=== PATIENT | male | born 1965 | race Caucasian/White ===

== ENCOUNTER → 2016-08-31 | Outpatient (CLI) | payer MEDICAID, MEDICARE ==
[2016-08-31 11:44] LABS: ALBUMIN/GLOBULIN RATIO 1.48 (1.00-1.93); ALKALINE PHOSPHATASE 64 U/L (45-117); ALT/SGPT 19 U/L (12-78); ANION GAP 9 MEQ/L (8-16); AST/SGOT 9 U/L (15-37); BILIRUBIN,TOTAL 0.3 MG/DL (0.2-1.0); BLOOD UREA NITROGEN 8 MG/DL (7-18); CALCIUM LEVEL 10.3 MG/DL (8.5-10.1); CARBON DIOXIDE LEVEL 32 MEQ/L (21-32); CHLORIDE LEVEL 102 MEQ/L (98-107); CHOLESTEROL LEVEL 114 MG/DL (<200); CREATININE FOR GFR 0.78 MG/DL (0.70-1.30); GLOMERULAR FILTRATION RATE > 60.0 (>56); GLUCOSE, FASTING 64 MG/DL (70-105); POTASSIUM SERUM 4.9 MEQ/L (3.5-5.1); SODIUM LEVEL 143 MEQ/L (136-145); TOTAL PROTEIN 6.7 GM/DL (6.4-8.2); TRIGLYCERIDES LEVEL 64 MG/DL (<150)
== END ==
LOC: M LAB 10:36
PROVIDERS: ATTEND Emergency Medicine
DX: E11.9 Type 2 diabetes mellitus without complications (principal)

== ENCOUNTER → 2016-09-07 | Outpatient (REF) | payer MEDICARE ==
[2016-09-07 13:38] LABS: BASO % 1.1 % (0.0-1.0); EOS # 0.2 K/mm3 (0.0-0.50); EOS % 5.4 % (0.0-3.0); LARGE UNSTAINED CELL # 0.1 K/mm3 (0.0-0.4); LARGE UNSTAINED CELL % 1.5 % (0.0-4.0); LYMPH # 1.2 K/mm3 (1.5-4.5); LYMPH % 24.8 % (24.0-44.0); MEAN CORPUSCULAR HGB CONC 33.7 g/dl (32.0-36.5); MEAN CORPUSCULAR VOLUME 100.9 fl (80.0-96.0); MONO # 0.3 K/mm3 (0.0-0.8); MONO % 7.2 % (0.0-5.0); NEUTROPHILS # 2.8 K/mm3 (1.8-7.7); PLATELET COUNT, AUTOMATED 222 k/mm3 (150-450); RED CELL DISTRIBUTION WIDTH 12.7 % (11.5-14.5); WHITE BLOOD COUNT 4.7 K/mm3 (4.0-10.0)
[2016-09-11 00:07] LABS: PHENOBARBITAL (PRIMIDONE) 5 ug/mL (15-40)
== END ==
LOC: M LABNEURO 12:54
PROVIDERS: ATTEND Physician Assistant Medical
DX: R25.1 Tremor, unspecified (principal); G40.909 Epilepsy, unspecified, not intractable, without status epilepticus

== ENCOUNTER → 2017-03-01 | Outpatient (REF) | payer MEDICARE, MEDICAID ==
[2017-03-01 13:50] LABS: ALBUMIN 3.8 GM/DL (3.2-5.2); ALBUMIN/GLOBULIN RATIO 1.41 (1.00-1.93); ALKALINE PHOSPHATASE 66 U/L (45-117); ALT/SGPT 18 U/L (12-78); ANION GAP 9 MEQ/L (8-16); AST/SGOT 5 U/L (15-37); BILIRUBIN,TOTAL 0.5 MG/DL (0.2-1.0); BLOOD UREA NITROGEN 9 MG/DL (7-18); CALCIUM LEVEL 9.8 MG/DL (8.5-10.1); CARBON DIOXIDE LEVEL 29 MEQ/L (21-32); CHLORIDE LEVEL 98 MEQ/L (98-107); CHOLESTEROL LEVEL 118 MG/DL (<200); CREATININE FOR GFR 0.76 MG/DL (0.70-1.30); GLOMERULAR FILTRATION RATE > 60.0 (>56); GLUCOSE, FASTING 104 MG/DL (70-105); POTASSIUM SERUM 4.5 MEQ/L (3.5-5.1); SODIUM LEVEL 136 MEQ/L (136-145); TOTAL PROTEIN 6.5 GM/DL (6.4-8.2); TRIGLYCERIDES LEVEL 97 MG/DL (<150)
== END ==
LOC: M LABNEURO 12:23
PROVIDERS: ATTEND Emergency Medicine
DX: E11.9 Type 2 diabetes mellitus without complications (principal); I10 Essential (primary) hypertension; E55.9 Vitamin D deficiency, unspecified

== ENCOUNTER → 2017-03-19 | Outpatient (REF) | payer MEDICARE ==
[2017-03-19 14:34] LABS: BASO # 0.1 K/mm3 (0.0-0.2); BASO % 1.4 % (0.0-1.0); EOS # 0.3 K/mm3 (0.0-0.50); EOS % 5.7 % (0.0-3.0); LARGE UNSTAINED CELL # 0.1 K/mm3 (0.0-0.4); LARGE UNSTAINED CELL % 1.2 % (0.0-4.0); LYMPH # 1.4 K/mm3 (1.5-4.5); LYMPH % 26.5 % (24.0-44.0); MEAN CORPUSCULAR HEMOGLOBIN 34.2 pg (27.0-33.0); MEAN CORPUSCULAR VOLUME 100.6 fl (80.0-96.0); MONO # 0.3 K/mm3 (0.0-0.8); MONO % 5.3 % (0.0-5.0); PLATELET COUNT, AUTOMATED 234 k/mm3 (150-450); RED CELL DISTRIBUTION WIDTH 12.9 % (11.5-14.5)
[2017-03-24 08:06] LABS: PHENOBARBITAL (PRIMIDONE) 5 ug/mL (15-40)
== END ==
LOC: M LABNEURO 09:44
PROVIDERS: ATTEND Physician Assistant Medical
DX: G40.909 Epilepsy, unspecified, not intractable, without status epilepticus (principal); Z79.899 Other long term (current) drug therapy

== ENCOUNTER → 2017-04-02 | Outpatient (REF) | payer MEDICARE ==
[2017-04-05 00:07] LABS: PHENOBARBITAL (PRIMIDONE) 6 ug/mL (15-40)
== END ==
LOC: M LABNEURO 09:35
PROVIDERS: ATTEND Physician Assistant Medical
DX: G40.909 Epilepsy, unspecified, not intractable, without status epilepticus (principal)

== ENCOUNTER → 2017-04-19 | Outpatient (REF) | payer MEDICARE | LOC: M LABDRAW1 11:32 | PROVIDERS: ATTEND Physician Assistant Medical | DX: G40.909 Epilepsy, unspecified, not intractable, without status epilepticus (principal) ==

== ENCOUNTER → 2017-08-23 | Outpatient (REF) | payer MEDICARE ==
[2017-08-23 13:32] LABS: ALBUMIN 3.9 GM/DL (3.2-5.2); ALBUMIN/GLOBULIN RATIO 1.22 (1.00-1.93); ALKALINE PHOSPHATASE 73 U/L (45-117); ALT/SGPT 17 U/L (12-78); ANION GAP 9 MEQ/L (8-16); AST/SGOT 10 U/L (7-37); BILIRUBIN,TOTAL 0.4 MG/DL (0.2-1.0); BLOOD UREA NITROGEN 9 MG/DL (7-18); CALCIUM LEVEL 10.3 MG/DL (8.5-10.1); CARBON DIOXIDE LEVEL 32 MEQ/L (21-32); CHLORIDE LEVEL 96 MEQ/L (98-107); CHOLESTEROL LEVEL 125 MG/DL (<200); CHOLESTEROL RISK RATIO 2.717 (<5); CREATININE FOR GFR 0.81 MG/DL (0.70-1.30); GLOMERULAR FILTRATION RATE > 60.0 (>56); GLUCOSE, FASTING 99 MG/DL (70-105); HDL CHOLESTEROL 46 MG/DL (>40); LDL CHOLESTEROL 54.2 MG/DL (<100); NON-HDL-C 79 MG/DL; POTASSIUM SERUM 4.6 MEQ/L (3.5-5.1); SODIUM LEVEL 137 MEQ/L (136-145); TOTAL PROTEIN 7.1 GM/DL (6.4-8.2); TRIGLYCERIDES LEVEL 124 MG/DL (<150)
[2017-08-23 14:53] LABS: TOTAL 25(OH) VITAMIN D 46.3 NG/ML (30.0-100.0)
[2017-08-23 15:45] LABS: ESTIMATED AVERAGE GLUCOSE 143 MG/DL (60-110); HEMOGLOBIN A1c 6.6 %
== END ==
LOC: M LABNEURO 10:55
DX: E11.9 Type 2 diabetes mellitus without complications (principal); I10 Essential (primary) hypertension; E78.2 Mixed hyperlipidemia; E55.9 Vitamin D deficiency, unspecified
CPT/HCPCS: 80053

== ENCOUNTER → 2017-10-14 | Outpatient (REF) | payer MEDICARE, MEDICAID ==
[2017-10-14 14:29] LABS: VALPROIC ACID (DEPAKOTE) 51.7 UG/ML (50.0-100.0)
[2017-10-16 10:20] LABS: PHENOBARBITAL (PRIMIDONE) 6 ug/mL (15-40)
== END ==
LOC: M LABNEURO 09:57
DX: R56.9 Unspecified convulsions (principal)
CPT/HCPCS: 80188

== ENCOUNTER → 2018-02-20 | Outpatient (REF) | payer MEDICARE ==
[2018-02-20 13:25] LABS: ALBUMIN 3.7 GM/DL (3.2-5.2); ALBUMIN/GLOBULIN RATIO 1.16 (1.00-1.93); ALKALINE PHOSPHATASE 65 U/L (45-117); ALT/SGPT 23 U/L (12-78); ANION GAP 6 MEQ/L (8-16); AST/SGOT 5 U/L (7-37); BILIRUBIN,TOTAL 0.3 MG/DL (0.2-1.0); BLOOD UREA NITROGEN 9 MG/DL (7-18); CALCIUM LEVEL 9.7 MG/DL (8.5-10.1); CARBON DIOXIDE LEVEL 32 MEQ/L (21-32); CHLORIDE LEVEL 102 MEQ/L (98-107); CHOLESTEROL LEVEL 110 MG/DL (<200); CHOLESTEROL RISK RATIO 2.115 (<5); CREATININE FOR GFR 0.81 MG/DL (0.70-1.30); GLOMERULAR FILTRATION RATE > 60.0 (>56); GLUCOSE, FASTING 105 MG/DL (70-100); HDL CHOLESTEROL 52 MG/DL (>40); LDL CHOLESTEROL 45.4 MG/DL (<100); NON-HDL-C 58 MG/DL; POTASSIUM SERUM 4.7 MEQ/L (3.5-5.1); SODIUM LEVEL 140 MEQ/L (136-145); TOTAL PROTEIN 6.9 GM/DL (6.4-8.2); TRIGLYCERIDES LEVEL 63 MG/DL (<150)
[2018-02-20 14:15] LABS: ESTIMATED AVERAGE GLUCOSE 157 MG/DL (60-110); HEMOGLOBIN A1c 7.1 %
== END ==
LOC: M LABDRAW1 12:10
DX: E11.9 Type 2 diabetes mellitus without complications (principal); I10 Essential (primary) hypertension; E78.2 Mixed hyperlipidemia; E55.9 Vitamin D deficiency, unspecified; Z79.899 Other long term (current) drug therapy
CPT/HCPCS: 80053

== ENCOUNTER → 2018-02-26 | Outpatient (REF) | payer MEDICARE, MEDICAID ==
[2018-02-26 16:32] LABS: MALB URINE SIEMENS < 5.0 MG/L; MAU/CREAT RATIO 22.7 MCG/MG (0.0-30.0)
== END ==
LOC: M LABDRAW1 13:51
DX: E11.9 Type 2 diabetes mellitus without complications (principal)
CPT/HCPCS: 82043

== ENCOUNTER → 2018-05-06 | Outpatient (REF) | payer MEDICARE, MEDICAID ==
[2018-05-06 16:33] LABS: VALPROIC ACID (DEPAKOTE) 75.1 UG/ML (50.0-100.0)
[2018-05-10 00:07] LABS: LEVETIRACETAM (KEPPRA) 15.2 ug/mL (10.0-40.0); PHENOBARBITAL (PRIMIDONE) 4 ug/mL (15-40); PRIMIDONE, SERUM 4.3 ug/mL (5.0-12.0)
== END ==
LOC: M LABDRAW1 15:49
DX: G40.909 Epilepsy, unspecified, not intractable, without status epilepticus (principal)
CPT/HCPCS: 84443

== ENCOUNTER → 2018-08-25 | Outpatient (REF) | payer MEDICARE, MEDICAID | LOC: M LABNEURO 11:20 | PROVIDERS: ATTEND Physician Assistant | DX: E11.9 Type 2 diabetes mellitus without complications (principal) ==

== ENCOUNTER → 2018-09-07 | Outpatient (CLI) | payer MEDICARE, MEDICAID ==
[2018-09-07 17:57] LABS: BASO # 0.1 10^3/uL (0.0-0.2); BASO % 1.4 % (0.0-1.0); EOS # 0.4 10^3/uL (0.0-0.50); EOS % 4.1 % (0.0-3.0); HEMATOCRIT 45.2 % (42.0-52.0); HEMOGLOBIN 15.8 g/dl (13.5-17.5); LYMPH # 2.5 10^3/uL (1.5-4.5); LYMPH % 27.8 % (24.0-44.0); MEAN CORPUSCULAR HEMOGLOBIN 33.6 pg (27.0-33.0); MEAN CORPUSCULAR VOLUME 96.2 fl (80.0-96.0); MONO # 0.7 10^3/uL (0.0-0.8); MONO % 7.4 % (0.0-5.0); NEUTROPHILS # 5.4 10^3/uL (1.8-7.7); NEUTROPHILS % 59.1 % (36.0-66.0); PLATELET COUNT, AUTOMATED 260 10^3/uL (150-450); WHITE BLOOD COUNT 9.1 10^3/uL (4.0-10.0)
[2018-09-07 18:40] LABS: ALBUMIN 3.9 GM/DL (3.2-5.2); ALT/SGPT 20 U/L (12-78); BILIRUBIN,TOTAL 0.3 MG/DL (0.2-1.0); BLOOD UREA NITROGEN 8 MG/DL (7-18); CALCIUM LEVEL 8.8 MG/DL (8.5-10.1); CARBON DIOXIDE LEVEL 26 MEQ/L (21-32); CHLORIDE LEVEL 91 MEQ/L (98-107); CREATININE FOR GFR 0.67 MG/DL (0.70-1.30); GLOMERULAR FILTRATION RATE > 60.0 (>56); GLUCOSE, FASTING 69 MG/DL (70-100); LIPASE 140 U/L (73-393); SODIUM LEVEL 128 MEQ/L (136-145); TOTAL PROTEIN 6.7 GM/DL (6.4-8.2)
== END ==
LOC: M LABDRWAD 15:09
PROVIDERS: ATTEND Physician Assistant
DX: R10.31 Right lower quadrant pain (principal)

== ENCOUNTER → 2019-03-12 | Outpatient (REF) | payer MEDICARE, MEDICAID ==
[2019-03-12 13:07] LABS: BASO # 0.1 10^3/uL (0.0-0.2); BASO % 1.2 % (0.0-1.0); EOS # 0.2 10^3/uL (0.0-0.50); EOS % 4.8 % (0.0-3.0); HEMATOCRIT 46.4 % (42.0-52.0); HEMOGLOBIN 16.2 g/dl (13.5-17.5); LYMPH # 1.1 10^3/uL (1.5-4.5); MEAN CORPUSCULAR HEMOGLOBIN 33.8 pg (27.0-33.0); MEAN CORPUSCULAR HGB CONC 34.9 g/dl (32.0-36.5); MEAN CORPUSCULAR VOLUME 96.7 fl (80.0-96.0); MONO # 0.5 10^3/uL (0.0-0.8); MONO % 9.8 % (0.0-5.0); PLATELET COUNT, AUTOMATED 217 10^3/uL (150-450); WHITE BLOOD COUNT 4.8 10^3/uL (4.0-10.0)
[2019-03-12 13:21] LABS: ALBUMIN 3.7 GM/DL (3.2-5.2); ALT/SGPT 30 U/L (12-78); BILIRUBIN,TOTAL < 0.1 MG/DL (0.2-1.0); BLOOD UREA NITROGEN 11 MG/DL (7-18); CARBON DIOXIDE LEVEL 25 MEQ/L (21-32); CHLORIDE LEVEL 101 MEQ/L (98-107); CHOLESTEROL LEVEL 126 MG/DL (<200); CHOLESTEROL RISK RATIO 2.377 (<5); CREATININE FOR GFR 0.76 MG/DL (0.70-1.30); GLOMERULAR FILTRATION RATE > 60.0 (>56); GLUCOSE, FASTING 139 MG/DL (70-100); HDL CHOLESTEROL 53 MG/DL (>40); LDL CHOLESTEROL 53 MG/DL (<100); NON-HDL-C 73 MG/DL; POTASSIUM SERUM 4.7 MEQ/L (3.5-5.1); SODIUM LEVEL 134 MEQ/L (136-145); TOTAL PROTEIN 6.7 GM/DL (6.4-8.2); TRIGLYCERIDES LEVEL 99 MG/DL (<150)
[2019-03-12 13:25] LABS: HEMOGLOBIN A1c 7.7 %; TOTAL 25(OH) VITAMIN D 30.3 NG/ML (30.0-100.0)
[2019-03-12 13:40] LABS: CREATININE, URINE 51.8 MG/DL; MALB URINE SIEMENS 42.9 MG/L; MAU/CREAT RATIO 82.8 MCG/MG (0.0-30.0)
== END ==
LOC: M LABDRAW1 08:29
PROVIDERS: ATTEND Physician Assistant
DX: E11.69 Type 2 diabetes mellitus with other specified complication (principal); E55.9 Vitamin D deficiency, unspecified; G40.901 Epilepsy, unspecified, not intractable, with status epilepticus; Z51.81 Encounter for therapeutic drug level monitoring

== ENCOUNTER → 2019-03-12 | Outpatient (REF) | payer MEDICARE, MEDICAID ==
[2019-03-15 16:07] LABS: LEVETIRACETAM (KEPPRA) 7.6 ug/mL (10.0-40.0)
== END ==
LOC: M LABDRAW1 08:32
PROVIDERS: ATTEND Physician Assistant Medical
DX: G40.901 Epilepsy, unspecified, not intractable, with status epilepticus (principal); Z51.81 Encounter for therapeutic drug level monitoring

== ENCOUNTER → 2019-09-09 | Outpatient (REF) | payer MEDICARE, MEDICAID ==
[2019-09-09 14:32] LABS: HEMOGLOBIN A1c 6.6 %
[2019-09-09 14:41] LABS: ALBUMIN 3.9 GM/DL (3.2-5.2); ALT/SGPT 17 U/L (12-78); BILIRUBIN,TOTAL 0.3 MG/DL (0.2-1.0); BLOOD UREA NITROGEN 8 MG/DL (7-18); CALCIUM LEVEL 9.3 MG/DL (8.5-10.1); CARBON DIOXIDE LEVEL 29 MEQ/L (21-32); CHLORIDE LEVEL 102 MEQ/L (98-107); CREATININE FOR GFR 0.81 MG/DL (0.70-1.30); GLOMERULAR FILTRATION RATE > 60.0 (>56); GLUCOSE, FASTING 112 MG/DL (70-100); POTASSIUM SERUM 4.5 MEQ/L (3.5-5.1); SODIUM LEVEL 137 MEQ/L (136-145); TOTAL PROTEIN 6.5 GM/DL (6.4-8.2)
[2019-09-09 15:09] LABS: CREATININE, URINE 40.7 MG/DL; MALB URINE SIEMENS 25.9 MG/L; MAU/CREAT RATIO 63.6 MCG/MG (0.0-30.0)
== END ==
LOC: M LABDRWAD 12:52
PROVIDERS: ATTEND Physician Assistant
DX: E11.69 Type 2 diabetes mellitus with other specified complication (principal)

== ENCOUNTER → 2019-09-26 | Outpatient (CLI) | payer MEDICARE, MEDICAID | LOC: M ADAMS 10:26 | PROVIDERS: ATTEND Physician Assistant Medical | DX: R25.1 Tremor, unspecified (principal); G40.89 Other seizures ==

== ENCOUNTER → 2020-04-07 | Outpatient (REF) | payer MEDICARE, MEDICAID ==
[2020-04-09 11:13] LABS: LEVETIRACETAM (KEPPRA) 8.2 ug/mL (10.0-40.0)
== END ==
LOC: M LABDRWAD 13:21
PROVIDERS: ATTEND Physician Assistant Medical
DX: G40.89 Other seizures (principal)

== ENCOUNTER → 2020-04-07 | Outpatient (REF) | payer MEDICARE, MEDICAID ==
[2020-04-07 14:05] LABS: BASO # 0.1 10^3/uL (0.0-0.2); BASO % 1.4 % (0.0-1.0); EOS # 0.2 10^3/uL (0.0-0.5); EOS % 4.9 % (0.0-3.0); LYMPH # 1.2 10^3/uL (1.5-5.0); LYMPH % 24.8 % (24.0-44.0); MEAN CORPUSCULAR HEMOGLOBIN 33.6 pg (27.0-33.0); MEAN CORPUSCULAR HGB CONC 34.8 g/dl (32.0-36.5); MEAN CORPUSCULAR VOLUME 96.6 fl (80.0-96.0); MONO # 0.4 10^3/uL (0.0-0.8); MONO % 8.4 % (0.0-5.0); NEUTROPHILS # 2.9 10^3/uL (1.5-8.5); NEUTROPHILS % 60.3 % (36.0-66.0); PLATELET COUNT, AUTOMATED 210 10^3/uL (150-450); RED BLOOD COUNT 4.76 10^6/uL (4.30-6.10); WHITE BLOOD COUNT 4.9 10^3/uL (4.0-10.0)
[2020-04-07 14:23] LABS: ALBUMIN 4.1 GM/DL (3.2-5.2); ALT/SGPT 21 U/L (12-78); BLOOD UREA NITROGEN 10 MG/DL (7-18); CALCIUM LEVEL 9.8 MG/DL (8.5-10.1); CARBON DIOXIDE LEVEL 28 MEQ/L (21-32); CHLORIDE LEVEL 95 MEQ/L (98-107); CHOLESTEROL LEVEL 145 MG/DL (<200); CHOLESTEROL RISK RATIO 2.589 (<5); CREATININE FOR GFR 0.85 MG/DL (0.70-1.30); GLOMERULAR FILTRATION RATE > 60.0 (>56); GLUCOSE, FASTING 101 MG/DL (70-100); HDL CHOLESTEROL 56 MG/DL (>40); LDL CHOLESTEROL 64 MG/DL (<100); NON-HDL-C 89 MG/DL; POTASSIUM SERUM 4.5 MEQ/L (3.5-5.1); SODIUM LEVEL 132 MEQ/L (136-145); TOTAL 25(OH) VITAMIN D 36.7 NG/ML (30.0-100.0); TOTAL PROTEIN 7.1 GM/DL (6.4-8.2); TRIGLYCERIDES LEVEL 123 MG/DL (<150)
[2020-04-07 14:53] LABS: BILIRUBIN,TOTAL 0.4 MG/DL (0.2-1.0)
[2020-04-07 15:03] LABS: MAU/CREAT RATIO 80.3 MCG/MG (0.0-30.0)
== END ==
LOC: M LABDRWAD 13:19
PROVIDERS: ATTEND Physician Assistant
DX: E11.69 Type 2 diabetes mellitus with other specified complication (principal); E78.2 Mixed hyperlipidemia; E55.9 Vitamin D deficiency, unspecified; J30.9 Allergic rhinitis, unspecified; Z79.899 Other long term (current) drug therapy

== ENCOUNTER 2021-10-03 15:06 | Inpatient (IN) | payer MEDICARE, MEDICAID ==
[~2021-10-03] VITALS: Ht 180.3 cm; Wt 75.0 kg
[2021-10-03] MEDS ORDERED: DIVA500T94 (15:31)
[2021-10-03] MEDS ORDERED: FARX1TAB3 (15:31)
[2021-10-03] MEDS ORDERED: METF10004 (15:31)
[2021-10-03] MEDS ORDERED: ASPI81TA26 PO (15:31)
[2021-10-03] MEDS ORDERED: PRAV40TA2 (15:31)
[2021-10-03] MEDS ORDERED: LOSA100T45 (15:31)
[2021-10-03] MEDS ORDERED: DOK1CAP4 (15:31)
[2021-10-03] MEDS ORDERED: ERGO500029 (15:31)
[2021-10-03] MEDS ORDERED: PRIM50TA6 (15:31)
[2021-10-03] MEDS ORDERED: CALC-356 (15:31)
[2021-10-03] MEDS ORDERED: LEVE10003 (15:31)
[2021-10-03] MEDS ORDERED: DOCU100C16 (15:31)
[2021-10-03] MEDS ORDERED: ONDANSETRON 4MG/2ML VIAL IV ONE (15:55)
[2021-10-03] MEDS ORDERED: NS 1,000 ML IV ONE (15:55)
[2021-10-03] MEDS ORDERED: MORPHINE 4 MG/ML 1ML VIAL/SYRINGE (J2270) IV ONE (15:55)
[2021-10-03] MEDS ORDERED: ISOVUE-370 76% 100ML VIAL As Ordered ONE (16:16)
[2021-10-03 17:07] LABS: RSV AMPLIFICATION NEGATIVE (NEGATIVE)
[2021-10-03] MEDS ORDERED: MORPHINE 4 MG/ML 1ML VIAL/SYRINGE (J2270) IV PRN ×2 (19:55)
[2021-10-03] MEDS ORDERED: ONDANSETRON 4MG/2ML VIAL IV PRN (19:55)
[2021-10-03] MEDS ORDERED: GLUCAGON INJ 1MG VIAL SC PRN (19:55)
[2021-10-03] MEDS: LR 1,000 ML IV SCH ×2 (19:55→23:02)
[2021-10-03] MEDS ORDERED: GLUCOSE 4GM CHEW TABLET PO PRN (19:55)
[2021-10-03] MEDS ORDERED: DEXTROSE 50% 50 ML SYRINGE IV PRN (19:55)
[2021-10-03 21:01] LABS: BASO % 0.1 % (0.0-1.0); HEMATOCRIT 47.8 % (42.0-52.0); LYMPH # 1.5 10^3/uL (1.5-5.0); LYMPH % 10.7 % (24.0-44.0); MEAN CORPUSCULAR HEMOGLOBIN 33.8 pg (27.0-33.0); MEAN CORPUSCULAR HGB CONC 34.3 g/dl (32.0-36.5); MEAN CORPUSCULAR VOLUME 98.6 fl (80.0-96.0); MONO % 12.3 % (2.0-8.0); NEUTROPHILS % 76.5 % (36.0-66.0); PLATELET COUNT, AUTOMATED 240 10^3/uL (150-450); RED BLOOD COUNT 4.85 10^6/uL (4.30-6.10); WHITE BLOOD COUNT 14.3 10^3/uL (4.0-10.0)
[2021-10-03] MEDS ORDERED: ERGO500029 PO (21:14)
[2021-10-03] MEDS ORDERED: CALC1TAB63 PO (21:14)
[2021-10-03] MEDS ORDERED: PRAV40TA2 PO (21:14)
[2021-10-03] MEDS ORDERED: ASPI-161 PO (21:14)
[2021-10-03] MEDS ORDERED: METF10004 PO (21:14)
[2021-10-03] MEDS ORDERED: PRIM50TA6 PO ×2 (21:14)
[2021-10-03] MEDS ORDERED: LOSA100T45 PO (21:14)
[2021-10-03] MEDS ORDERED: DIVA500T94 PO ×2 (21:14)
[2021-10-03] MEDS ORDERED: DOCU100C16 PO (21:14)
[2021-10-03] MEDS ORDERED: KEPP10002 PO (21:14)
[2021-10-03] MEDS ORDERED: FARX1TAB3 PO (21:14)
[2021-10-03] MEDS ORDERED: HOME MED LIST COMPLETE! XX SCH (21:15)
[2021-10-03 21:33] LABS: MONO # 1.8 10^3/uL (0.0-0.8)
[2021-10-03 21:35] LABS: HEMOGLOBIN 16.4 g/dl (13.5-17.5)
[2021-10-03 21:39] LABS: ALBUMIN 2.9 GM/DL (3.2-5.2); BILIRUBIN,TOTAL 0.4 MG/DL (0.2-1.0); CALCIUM LEVEL 8.9 MG/DL (8.5-10.1); CREATININE FOR GFR 1.36 MG/DL (0.70-1.30); GLOMERULAR FILTRATION RATE 57.7 (>56); POTASSIUM SERUM 3.4 MEQ/L (3.5-5.1); TOTAL PROTEIN 5.6 GM/DL (6.4-8.2)
[2021-10-03] MEDS ORDERED: levETIRAcetam INJection 1,000 MG in D5W 100 ML IV ONE (22:20)
[2021-10-03] MEDS: HumaLOG INSULIN (NovoLOG) PER UNIT SC SCH ×2 (22:45→23:03)
[2021-10-03] MEDS: levETIRAcetam 250MG TABLET (KEPPRA) PO SCH (22:55)
[2021-10-04] MEDS: LR 1,000 ML IV SCH ×2 (06:25→13:54)
[2021-10-04 06:39] LABS: HEMATOCRIT 46.8 % (42.0-52.0); HEMOGLOBIN 16.2 g/dl (13.5-17.5); MEAN CORPUSCULAR HEMOGLOBIN 34.2 pg (27.0-33.0); MEAN CORPUSCULAR HGB CONC 34.6 g/dl (32.0-36.5); MEAN CORPUSCULAR VOLUME 98.7 fl (80.0-96.0); PLATELET COUNT, AUTOMATED 233 10^3/uL (150-450); RED BLOOD COUNT 4.74 10^6/uL (4.30-6.10)
[2021-10-04 07:01] LABS: INR 1.2; PROTHROMBIN TIME 15.6 SECONDS (12.7-14.5)
[2021-10-04 07:02] LABS: PARTIAL THROMBOPLASTIN TIME 31.6 SECONDS (25.9-37.0)
[2021-10-04 07:04] LABS: BLOOD UREA NITROGEN 36 MG/DL (7-18); CALCIUM LEVEL 8.6 MG/DL (8.5-10.1); CARBON DIOXIDE LEVEL 28 MEQ/L (21-32); CHLORIDE LEVEL 97 MEQ/L (98-107); CREATININE FOR GFR 0.82 MG/DL (0.70-1.30); GLOMERULAR FILTRATION RATE > 60.0 (>56); GLUCOSE, FASTING 103 MG/DL (70-100); POTASSIUM SERUM 3.6 MEQ/L (3.5-5.1); SODIUM LEVEL 137 MEQ/L (136-145)
[2021-10-04] MEDS ORDERED: levETIRAcetam INJection 1,000 MG in D5W 100 ML IV SCH (10:00)
[2021-10-04] MEDS: HumaLOG INSULIN (NovoLOG) PER UNIT SC SCH ×3 (12:00→21:00)
[2021-10-04] MEDS: DOCUSATE SODIUM 100MG CAPSULE PO SCH ×2 (12:09→21:09)
[2021-10-04] MEDS: LOSARTAN 50MG TABLET PO SCH (12:09)
[2021-10-04] MEDS: PRAVASTATIN 20 MG TAB PO SCH (12:09)
[2021-10-04] MEDS: DIVALPROEX 500 MG TAB PO SCH ×2 (12:25→21:10)
[2021-10-04] MEDS: PRIMIDONE 50MG TAB PO SCH ×2 (14:09→21:10)
[2021-10-04 14:45] VITALS: BP 160/74
[2021-10-04] MEDS: levETIRAcetam 250MG TABLET (KEPPRA) PO SCH (21:10)
[2021-10-04 22:00] VITALS: BP_SYST 150; BP_SYST 173; BP_DIAS 68; BP_DIAS 85
[2021-10-05 06:00] VITALS: BP 131/78
[2021-10-05] MEDS: HumaLOG INSULIN (NovoLOG) PER UNIT SC SCH ×4 (07:30→20:34)
[2021-10-05 08:30] VITALS: BP 131/78
[2021-10-05] MEDS: levETIRAcetam 250MG TABLET (KEPPRA) PO SCH ×2 (09:56→21:17)
[2021-10-05] MEDS: DOCUSATE SODIUM 100MG CAPSULE PO SCH ×2 (09:57→21:18)
[2021-10-05] MEDS: PRIMIDONE 50MG TAB PO SCH ×2 (09:57→21:17)
[2021-10-05] MEDS: DIVALPROEX 500 MG TAB PO SCH ×2 (09:58→21:17)
[2021-10-05] MEDS: LOSARTAN 50MG TABLET PO SCH (10:00)
[2021-10-05] MEDS: PRAVASTATIN 20 MG TAB PO SCH (10:01)
[2021-10-05 14:00] VITALS: BP 156/87
[2021-10-05] MEDS: SENNA 8.6 MG TAB (SENOKOT) PO SCH (21:17)
[2021-10-05] MEDS: HEPARIN SOD (PORCINE) 5000UNITS/ML 1ML VIAL/SYRINGE SQ SCH (21:18)
[2021-10-05 22:00] VITALS: BP 159/82
[2021-10-06] MEDS: HEPARIN SOD (PORCINE) 5000UNITS/ML 1ML VIAL/SYRINGE SQ SCH ×3 (05:15→21:21)
[2021-10-06 06:57] VITALS: BP 155/79
[2021-10-06 07:12] LABS: HEMATOCRIT 42.4 % (42.0-52.0); HEMOGLOBIN 14.8 g/dl (13.5-17.5); MEAN CORPUSCULAR HEMOGLOBIN 33.9 pg (27.0-33.0); MEAN CORPUSCULAR HGB CONC 34.9 g/dl (32.0-36.5); PLATELET COUNT, AUTOMATED 175 10^3/uL (150-450); RED BLOOD COUNT 4.37 10^6/uL (4.30-6.10); WHITE BLOOD COUNT 6.4 10^3/uL (4.0-10.0)
[2021-10-06 07:39] LABS: BLOOD UREA NITROGEN 11 MG/DL (7-18); CARBON DIOXIDE LEVEL 31 MEQ/L (21-32); CHLORIDE LEVEL 98 MEQ/L (98-107); CREATININE FOR GFR 0.46 MG/DL (0.70-1.30); GLOMERULAR FILTRATION RATE > 60.0 (>56); GLUCOSE, FASTING 120 MG/DL (70-100); MAGNESIUM LEVEL 1.8 MG/DL (1.8-2.4); POTASSIUM SERUM 2.2 MEQ/L (3.5-5.1); SODIUM LEVEL 136 MEQ/L (136-145)
[2021-10-06] MEDS ORDERED: POTASSIUM CHLORIDE 10MEQ SR TABLET PO SCH (08:00)
[2021-10-06] MEDS: PRAVASTATIN 20 MG TAB PO SCH (08:15)
[2021-10-06] MEDS: HumaLOG INSULIN (NovoLOG) PER UNIT SC SCH ×4 (08:15→21:00)
[2021-10-06] MEDS: DOCUSATE SODIUM 100MG CAPSULE PO SCH ×2 (08:16→21:22)
[2021-10-06] MEDS: DIVALPROEX 500 MG TAB PO SCH ×2 (08:16→21:22)
[2021-10-06] MEDS: SENNA 8.6 MG TAB (SENOKOT) PO SCH ×2 (08:16→21:22)
[2021-10-06] MEDS: levETIRAcetam 250MG TABLET (KEPPRA) PO SCH ×2 (08:17→21:22)
[2021-10-06] MEDS: PRIMIDONE 50MG TAB PO SCH ×2 (08:17→21:22)
[2021-10-06] MEDS: LOSARTAN 50MG TABLET PO SCH (08:17)
[2021-10-06] MEDS: POTASSIUM CHLORIDE 10MEQ SR TABLET PO SCH ×2 (10:01→13:35)
[2021-10-06 14:00] VITALS: BP 177/88
[2021-10-06 20:00] VITALS: BP 153/89
[2021-10-07] MEDS: HEPARIN SOD (PORCINE) 5000UNITS/ML 1ML VIAL/SYRINGE SQ SCH ×3 (05:35→21:53)
[2021-10-07 05:43] VITALS: BP 164/88
[2021-10-07 06:19] LABS: HEMATOCRIT 41.8 % (42.0-52.0); HEMOGLOBIN 14.5 g/dl (13.5-17.5); MEAN CORPUSCULAR HEMOGLOBIN 33.8 pg (27.0-33.0); MEAN CORPUSCULAR HGB CONC 34.7 g/dl (32.0-36.5); MEAN CORPUSCULAR VOLUME 97.4 fl (80.0-96.0); PLATELET COUNT, AUTOMATED 169 10^3/uL (150-450); RED BLOOD COUNT 4.29 10^6/uL (4.30-6.10); WHITE BLOOD COUNT 5.8 10^3/uL (4.0-10.0)
[2021-10-07 06:55] LABS: BLOOD UREA NITROGEN 6 MG/DL (7-18); CALCIUM LEVEL 8.2 MG/DL (8.5-10.1); CARBON DIOXIDE LEVEL 32 MEQ/L (21-32); CHLORIDE LEVEL 100 MEQ/L (98-107); CREATININE FOR GFR 0.45 MG/DL (0.70-1.30); GLOMERULAR FILTRATION RATE > 60.0 (>56); GLUCOSE, FASTING 133 MG/DL (70-100); POTASSIUM SERUM 2.6 MEQ/L (3.5-5.1); SODIUM LEVEL 136 MEQ/L (136-145)
[2021-10-07] MEDS: levETIRAcetam 250MG TABLET (KEPPRA) PO SCH ×2 (08:48→21:54)
[2021-10-07] MEDS: SENNA 8.6 MG TAB (SENOKOT) PO SCH ×2 (08:48→21:54)
[2021-10-07] MEDS: LOSARTAN 50MG TABLET PO SCH (08:48)
[2021-10-07] MEDS: DOCUSATE SODIUM 100MG CAPSULE PO SCH ×2 (08:49→21:54)
[2021-10-07] MEDS: POTASSIUM CHLORIDE 10MEQ SR TABLET PO SCH ×3 (08:49→12:42)
[2021-10-07] MEDS: metFORMIN (GLUCOPHAGE) 1000 MG TABLET PO SCH ×2 (08:49→17:29)
[2021-10-07] MEDS: PRAVASTATIN 20 MG TAB PO SCH (08:50)
[2021-10-07] MEDS: PRIMIDONE 50MG TAB PO SCH ×2 (08:50→21:54)
[2021-10-07] MEDS: DIVALPROEX 500 MG TAB PO SCH ×2 (08:50→21:53)
[2021-10-07 11:26] LABS: APPEARANCE, URINE CLEAR (CLEAR); BACTERIA, URINE AUTO NEGATIVE (NEGATIVE); BILIRUBIN, URINE AUTO NEGATIVE (NEGATIVE); BLOOD, URINE BLOOD 1+ (NEGATIVE); COLOR, URINE STRAW (YELLOW); GLUCOSE, URINE (UA) AUTO 1+ mg/dL (NEGATIVE); KETONE, URINE AUTO 1+ mg/dL (NEGATIVE); LEUKOCYTE ESTERASE, URINE AUTO NEGATIVE (NEGATIVE); NITRITE, URINE AUTO NEGATIVE (NEGATIVE); PROTEIN, URINE AUTO NEGATIVE (NEGATIVE); RBC, URINE AUTO 0 /HPF (0-3); SPECIFIC GRAVITY URINE AUTO 1.003 (1.002-1.035); SQUAMOUS EPITHELIAL CELL UR AU 0 /HPF (0-6); UROBILINOGEN, URINE AUTO 0.2 mg/dL (0.0-2.0); WBC, URINE AUTO 0 /HPF (0-3)
[2021-10-07 20:21] VITALS: BP 165/85
[2021-10-08] MEDS: HEPARIN SOD (PORCINE) 5000UNITS/ML 1ML VIAL/SYRINGE SQ SCH (05:09)
[2021-10-08 05:36] VITALS: BP 162/84
[2021-10-08 07:52] LABS: HEMATOCRIT 40.1 % (42.0-52.0); HEMOGLOBIN 13.8 g/dl (13.5-17.5); MEAN CORPUSCULAR HEMOGLOBIN 33.7 pg (27.0-33.0); MEAN CORPUSCULAR HGB CONC 34.4 g/dl (32.0-36.5); MEAN CORPUSCULAR VOLUME 97.8 fl (80.0-96.0); PLATELET COUNT, AUTOMATED 168 10^3/uL (150-450); WHITE BLOOD COUNT 5.2 10^3/uL (4.0-10.0)
[2021-10-08 08:10] LABS: BLOOD UREA NITROGEN 6 MG/DL (7-18); CALCIUM LEVEL 8.1 MG/DL (8.5-10.1); CARBON DIOXIDE LEVEL 29 MEQ/L (21-32); CHLORIDE LEVEL 100 MEQ/L (98-107); CREATININE FOR GFR 0.45 MG/DL (0.70-1.30); GLOMERULAR FILTRATION RATE > 60.0 (>56); GLUCOSE, FASTING 140 MG/DL (70-100); MAGNESIUM LEVEL 1.7 MG/DL (1.8-2.4); POTASSIUM SERUM 3.1 MEQ/L (3.5-5.1); SODIUM LEVEL 136 MEQ/L (136-145)
[2021-10-08] MEDS: metFORMIN (GLUCOPHAGE) 1000 MG TABLET PO SCH (08:13)
[2021-10-08] MEDS: PRAVASTATIN 20 MG TAB PO SCH (08:14)
[2021-10-08 08:15] VITALS: BP 162/84
[2021-10-08] MEDS: LOSARTAN 50MG TABLET PO SCH (08:15)
[2021-10-08] MEDS: DIVALPROEX 500 MG TAB PO SCH (08:15)
[2021-10-08] MEDS: DOCUSATE SODIUM 100MG CAPSULE PO SCH (08:15)
[2021-10-08] MEDS: SENNA 8.6 MG TAB (SENOKOT) PO SCH (08:15)
[2021-10-08] MEDS: PRIMIDONE 50MG TAB PO SCH (08:15)
[2021-10-08] MEDS ORDERED: POTASSIUM CHLORIDE 10MEQ SR TABLET PO ONE (09:00)
[2021-10-08] MEDS ORDERED: MAG SULF 1GM/100ML (MAG RUN) 1 GM in IV 1 EA IV ONE (09:00)
[2021-10-08] MEDS ORDERED: POTA-136 PO (10:08)
== END 2021-10-08 13:48 | disposition home or self-care (01) | DRG 389 ==
LOC: M ED 15:06 → M ED INP 19:55 → ENRESERV 10-04 13:57 → M MSPAV 10-04 14:46
PROVIDERS: ADMIT Family Medicine; ATTEND Family Medicine
DX: K56.2 Volvulus (principal); N17.9 Acute kidney failure, unspecified; E87.2 Acidosis; E11.9 Type 2 diabetes mellitus without complications; G40.909 Epilepsy, unspecified, not intractable, without status epilepticus; I10 Essential (primary) hypertension; E78.5 Hyperlipidemia, unspecified; E87.6 Hypokalemia; Z79.82 Long term (current) use of aspirin; Z79.899 Other long term (current) drug therapy

== ENCOUNTER → 2021-10-03 | Outpatient (CLI) | payer MEDICARE, MEDICAID ==
[~2021-10-03] MED LIST: ASPI-161 PO; ASPI81TA26 PO; CALC-356; CALC1TAB63 PO; DIVA500T94; DIVA500T94 PO; DOCU100C16; DOCU100C16 PO; DOK1CAP4; ERGO500029; ERGO500029 PO; FARX1TAB3; FARX1TAB3 PO; KEPP10002 PO; LEVE10003; LOSA100T45; LOSA100T45 PO; METF10004; METF10004 PO; PRAV40TA2; PRAV40TA2 PO; PRIM50TA6; PRIM50TA6 PO
[2021-10-03 13:10] LABS: BASO % 0.2 % (0.0-1.0); HEMATOCRIT 52.6 % (42.0-52.0); HEMOGLOBIN 18.5 g/dl (13.5-17.5); LYMPH # 0.9 10^3/uL (1.5-5.0); MEAN CORPUSCULAR HEMOGLOBIN 33.8 pg (27.0-33.0); MEAN CORPUSCULAR HGB CONC 35.2 g/dl (32.0-36.5); MEAN CORPUSCULAR VOLUME 96.2 fl (80.0-96.0); MONO # 1.2 10^3/uL (0.0-0.8); MONO % 7.8 % (2.0-8.0); NEUTROPHILS # 12.6 10^3/uL (1.5-8.5); NEUTROPHILS % 85.5 % (36.0-66.0); PLATELET COUNT, AUTOMATED 312 10^3/uL (150-450); RED BLOOD COUNT 5.47 10^6/uL (4.30-6.10); WHITE BLOOD COUNT 14.8 10^3/uL (4.0-10.0)
[2021-10-03 13:31] LABS: ALBUMIN 3.8 GM/DL (3.2-5.2); BILIRUBIN,TOTAL 0.5 MG/DL (0.2-1.0); CALCIUM LEVEL 10.1 MG/DL (8.5-10.1); CREATININE FOR GFR 1.63 MG/DL (0.70-1.30); GLOMERULAR FILTRATION RATE 46.8 (>56); POTASSIUM SERUM 3.8 MEQ/L (3.5-5.1); TOTAL PROTEIN 6.8 GM/DL (6.4-8.2)
== END ==
LOC: M PLALAB 11:38
PROVIDERS: ATTEND Nurse Practitioner Family
DX: R10.84 Generalized abdominal pain (principal)

== ENCOUNTER → 2021-10-11 | Outpatient (REF) | payer MEDICARE, MEDICAID ==
[~2021-10-11] MED LIST changes: +POTA-136 PO
[2021-10-11 17:44] LABS: BLOOD UREA NITROGEN 12 MG/DL (7-18); CALCIUM LEVEL 8.5 MG/DL (8.5-10.1); CARBON DIOXIDE LEVEL 35 MEQ/L (21-32); CHLORIDE LEVEL 97 MEQ/L (98-107); CREATININE FOR GFR 0.68 MG/DL (0.70-1.30); GLOMERULAR FILTRATION RATE > 60.0 (>56); GLUCOSE, FASTING 147 MG/DL (70-100); POTASSIUM SERUM 3.5 MEQ/L (3.5-5.1); SODIUM LEVEL 137 MEQ/L (136-145)
== END ==
LOC: M LABDRWAD 16:17
PROVIDERS: ATTEND Family Medicine
DX: E87.6 Hypokalemia (principal)

== ENCOUNTER → 2022-06-18 | Outpatient (CLI) | payer MEDICARE, MEDICAID ==
[2022-06-18 16:27] LABS: BASO # 0.1 10^3/uL (0.0-0.2); BASO % 1.2 % (0.0-1.0); EOS # 0.3 10^3/uL (0.0-0.5); EOS % 2.8 % (0.0-3.0); HEMATOCRIT 54.8 % (42.0-52.0); LYMPH # 1.8 10^3/uL (1.5-5.0); LYMPH % 19.6 % (24.0-44.0); MEAN CORPUSCULAR HEMOGLOBIN 32.8 pg (27.0-33.0); MEAN CORPUSCULAR HGB CONC 32.8 g/dl (32.0-36.5); MONO # 0.5 10^3/uL (0.0-0.8); MONO % 5.8 % (2.0-8.0); NEUTROPHILS # 6.3 10^3/uL (1.5-8.5); NEUTROPHILS % 70.2 % (36.0-66.0); PLATELET COUNT, AUTOMATED 217 10^3/uL (150-450); RED BLOOD COUNT 5.48 10^6/uL (4.30-6.10)
[2022-06-18 17:28] LABS: ALBUMIN 4.2 GM/DL (3.2-5.2); ALT/SGPT 28 U/L (12-78); BILIRUBIN,TOTAL 0.3 MG/DL (0.2-1.0); BLOOD UREA NITROGEN 14 MG/DL (7-18); CALCIUM LEVEL 9.6 MG/DL (8.5-10.1); CARBON DIOXIDE LEVEL 31 MEQ/L (21-32); CHLORIDE LEVEL 95 MEQ/L (98-107); CREATININE FOR GFR 0.89 MG/DL (0.70-1.30); GLOMERULAR FILTRATION RATE > 60.0 (>56); GLUCOSE, FASTING 78 MG/DL (70-100); POTASSIUM SERUM 4.7 MEQ/L (3.5-5.1); SODIUM LEVEL 130 MEQ/L (136-145); VALPROIC ACID (DEPAKOTE) 35.1 UG/ML (50.0-100.0)
== END ==
LOC: M LAB 15:31
PROVIDERS: ATTEND Psychiatry & Neurology Neurology
DX: G40.89 Other seizures (principal)

== ENCOUNTER → 2023-05-13 | Outpatient (CLI) | payer MEDICAID, MEDICARE ==
[~2023-05-13] MED LIST changes: -LOSA100T45; -LOSA100T45 PO; +LOSA100T46; +LOSA100T46 PO
[2023-05-13 16:06] LABS: BASO # 0.1 10^3/uL (0.0-0.2); BASO % 1.8 % (0.0-1.0); EOS # 0.3 10^3/uL (0.0-0.5); EOS % 3.7 % (0.0-3.0); HEMATOCRIT 52.3 % (42.0-52.0); HEMOGLOBIN 17.8 g/dl (13.5-17.5); LYMPH # 1.5 10^3/uL (1.5-5.0); LYMPH % 22.4 % (24.0-44.0); MEAN CORPUSCULAR HEMOGLOBIN 33.8 pg (27.0-33.0); MEAN CORPUSCULAR VOLUME 99.4 fl (80.0-96.0); MONO # 0.4 10^3/uL (0.0-0.8); MONO % 6.2 % (2.0-8.0); NEUTROPHILS # 4.4 10^3/uL (1.5-8.5); NEUTROPHILS % 65.6 % (36.0-66.0); PLATELET COUNT, AUTOMATED 254 10^3/uL (150-450); RED BLOOD COUNT 5.26 10^6/uL (4.30-6.10); WHITE BLOOD COUNT 6.8 10^3/uL (4.0-10.0)
[2023-05-13 16:35] LABS: VALPROIC ACID (DEPAKOTE) 36.3 UG/ML (50.0-100.0)
[2023-05-13 16:38] LABS: ALBUMIN 4.1 G/DL (3.2-5.2); ALKALINE PHOSPHATASE 80 U/L (46-116); ALT/SGPT 25 U/L (7.0-40); AST/SGOT 11 U/L (<34); BILIRUBIN,TOTAL 0.4 MG/DL (0.3-1.2); BLOOD UREA NITROGEN 11 MG/DL (9-23); CALCIUM LEVEL 9.6 MG/DL (8.5-10.1); CARBON DIOXIDE LEVEL 33 MMOL/L (20-31); CHLORIDE LEVEL 100 MMOL/L (98-107); CREATININE FOR GFR 0.74 MG/DL (0.70-1.30); GLOMERULAR FILTRATION RATE > 60.0 (>56); GLUCOSE, FASTING 90 MG/DL (60-100); POTASSIUM SERUM 4.9 MMOL/L (3.5-5.1); SODIUM LEVEL 138 MMOL/L (136-145); TOTAL PROTEIN 6.8 G/DL (5.7-8.2)
== END ==
LOC: M PLALAB 13:36
PROVIDERS: ATTEND Psychiatry & Neurology Neurology
DX: G40.89 Other seizures (principal)

== ENCOUNTER → 2024-03-26 | Outpatient (REF) | payer MEDICARE, MEDICAID ==
[~2024-03-26] MED LIST changes: -ASPI-161 PO; +ASPI-615 PO
[2024-03-26 17:51] LABS: ALBUMIN 3.9 G/DL (3.2-5.2); ALKALINE PHOSPHATASE 87 U/L (46-116); ALT/SGPT 20 U/L (7.0-40); AST/SGOT 8 U/L (<34); BILIRUBIN,TOTAL 0.3 MG/DL (0.3-1.2); BLOOD UREA NITROGEN 15 MG/DL (9-23); CALCIUM LEVEL 9.6 MG/DL (8.5-10.1); CARBON DIOXIDE LEVEL 32 MMOL/L (20-31); CHLORIDE LEVEL 98 MMOL/L (98-107); CHOLESTEROL LEVEL 135 MG/DL (<200); CHOLESTEROL RISK RATIO 3.19 (<5); CREATININE FOR GFR 0.75 MG/DL (0.70-1.30); GLOMERULAR FILTRATION RATE > 60.0 (>56); GLUCOSE, FASTING 106 MG/DL (60-100); HDL CHOLESTEROL 42.3 MG/DL (>40); LDL CHOLESTEROL 71.5 MG/DL (<100); NON-HDL-C 92.7 MG/DL; POTASSIUM SERUM 4.5 MMOL/L (3.5-5.1); SODIUM LEVEL 135 MMOL/L (136-145); TOTAL PROTEIN 6.6 G/DL (5.7-8.2); TRIGLYCERIDES LEVEL 106 MG/DL (<150)
[2024-03-26 17:53] LABS: TOTAL 25(OH) VITAMIN D 52.4 NG/ML (20.0-100.0)
[2024-03-26 17:58] LABS: HEMOGLOBIN A1c 8.5 % (4.0-6.0)
[2024-03-26 18:19] LABS: CREATININE, URINE 43.5 MG/DL; MALB URINE SIEMENS < 3.0 MG/L; MAU/CREAT RATIO 6.8 MCG/MG (0.0-30.0)
== END ==
LOC: M LABDRWAD 16:54
PROVIDERS: ATTEND Nurse Practitioner Family
DX: E11.69 Type 2 diabetes mellitus with other specified complication (principal); I10 Essential (primary) hypertension; E78.2 Mixed hyperlipidemia; E55.9 Vitamin D deficiency, unspecified

== ENCOUNTER → 2024-05-14 | Outpatient (CLI) | payer MEDICARE, MEDICAID ==
[2024-05-14 16:29] LABS: BASO # 0.1 10^3/uL (0.0-0.2); BASO % 1.5 % (0.0-1.0); EOS # 0.5 10^3/uL (0.0-0.5); EOS % 6.3 % (0.0-3.0); HEMATOCRIT 51.7 % (42.0-52.0); HEMOGLOBIN 17.5 g/dl (13.5-17.5); LYMPH # 1.5 10^3/uL (1.5-5.0); LYMPH % 20.4 % (24.0-44.0); MEAN CORPUSCULAR HEMOGLOBIN 33.5 pg (27.0-33.0); MEAN CORPUSCULAR HGB CONC 33.8 g/dl (32.0-36.5); MONO # 0.6 10^3/uL (0.0-0.8); MONO % 7.9 % (2.0-8.0); NEUTROPHILS # 4.6 10^3/uL (1.5-8.5); NEUTROPHILS % 63.8 % (36.0-66.0); PLATELET COUNT, AUTOMATED 210 10^3/uL (150-450); RED BLOOD COUNT 5.22 10^6/uL (4.30-6.10); WHITE BLOOD COUNT 7.2 10^3/uL (4.0-10.0)
[2024-05-14 16:42] LABS: VALPROIC ACID (DEPAKOTE) 51.8 UG/ML (50.0-100.0)
[2024-05-14 16:44] LABS: ALBUMIN 3.9 G/DL (3.2-5.2); ALKALINE PHOSPHATASE 91 U/L (46-116); ALT/SGPT 17 U/L (7.0-40); AST/SGOT < 8 U/L (<34); BILIRUBIN,TOTAL 0.2 MG/DL (0.3-1.2); BLOOD UREA NITROGEN 18 MG/DL (9-23); CALCIUM LEVEL 9.8 MG/DL (8.5-10.1); CARBON DIOXIDE LEVEL 29 MMOL/L (20-31); CHLORIDE LEVEL 98 MMOL/L (98-107); CREATININE FOR GFR 0.68 MG/DL (0.70-1.30); GLOMERULAR FILTRATION RATE > 60.0 (>56); GLUCOSE, FASTING 195 MG/DL (60-100); POTASSIUM SERUM 4.6 MMOL/L (3.5-5.1); SODIUM LEVEL 134 MMOL/L (136-145); TOTAL PROTEIN 6.9 G/DL (5.7-8.2)
[2024-05-18 00:22] LABS: LEVETIRACETAM (KEPPRA) 20.6 mcg/mL (6.0-46.0)
[2024-05-18 03:09] LABS: PHENOBARBITAL (PRIMIDONE) 7.5 mg/L (15.0-40.0); PRIMIDONE, SERUM 4.1 mg/L (5.0-12.0)
== END ==
LOC: M PLALAB 12:15
PROVIDERS: ATTEND Psychiatry & Neurology Neurology
DX: G40.89 Other seizures (principal)

== ENCOUNTER → 2024-07-06 | Outpatient (CLI) | payer MEDICARE, MEDICAID ==
[2024-07-06 13:20] LABS: HEMOGLOBIN A1c 8.9 % (4.0-6.0)
== END ==
LOC: M PLALAB 10:26
PROVIDERS: ATTEND Nurse Practitioner Family
DX: E11.69 Type 2 diabetes mellitus with other specified complication (principal)

== ENCOUNTER → 2024-10-01 | Outpatient (REF) | payer MEDICARE, MEDICAID ==
[2024-10-01 20:12] LABS: HEMOGLOBIN A1c 7.6 % (4.0-6.0)
== END ==
LOC: M LABDRWAD 18:00
PROVIDERS: ATTEND Nurse Practitioner Family
DX: E11.69 Type 2 diabetes mellitus with other specified complication (principal)

== ENCOUNTER → 2025-04-09 | Outpatient (CLI) | payer MEDICARE, MEDICAID ==
[~2025-04-09] MED LIST changes: +DIVA-41; +DIVA-41 PO; -DIVA500T94; -DIVA500T94 PO; -PRAV40TA2; -PRAV40TA2 PO; +PRAV40TA85; +PRAV40TA85 PO
[2025-04-09 14:10] LABS: BASO # 0.1 10^3/uL (0.0-0.2); BASO % 1.6 % (0.0-1.0); EOS # 0.4 10^3/uL (0.0-0.5); EOS % 5.3 % (0.0-3.0); LYMPH # 2.2 10^3/uL (1.5-5.0); LYMPH % 32.5 % (24.0-44.0); MONO # 0.6 10^3/uL (0.0-0.8); MONO % 8.3 % (2.0-8.0); NEUTROPHILS # 3.5 10^3/uL (1.5-8.5); NEUTROPHILS % 52.2 % (36.0-66.0); PLATELET COUNT, AUTOMATED 251 10^3/uL (150-450)
[2025-04-09 14:16] LABS: ALT/SGPT 15 U/L (7.0-40); AST/SGOT < 8 U/L (<34); CALCIUM LEVEL 10.2 MG/DL (8.3-10.6); CARBON DIOXIDE LEVEL 31 MMOL/L (20-31); CHLORIDE LEVEL 95 MMOL/L (98-107); CHOLESTEROL LEVEL 153 MG/DL (<200); CHOLESTEROL RISK RATIO 2.87 (<5); CREATININE FOR GFR 0.78 MG/DL (0.70-1.30); GLOMERULAR FILTRATION RATE > 90.0 (>49); LDL CHOLESTEROL 85.3 MG/DL (<100); NON-HDL-C 99.7 MG/DL; POTASSIUM SERUM 4.9 MMOL/L (3.5-5.1); SODIUM LEVEL 137 MMOL/L (136-145); TRIGLYCERIDES LEVEL 72 MG/DL (<150)
[2025-04-09 14:18] LABS: TOTAL 25(OH) VITAMIN D 26.9 NG/ML (20.0-100.0)
[2025-04-09 14:27] LABS: ESTIMATED AVERAGE GLUCOSE 243.0 MG/DL (60-110)
== END ==
LOC: M LABDRWAD 09:29
PROVIDERS: ATTEND Nurse Practitioner Family
DX: E11.69 Type 2 diabetes mellitus with other specified complication (principal); I10 Essential (primary) hypertension; E78.2 Mixed hyperlipidemia; E55.9 Vitamin D deficiency, unspecified

== ENCOUNTER → 2025-07-07 | Outpatient (REF) | payer MEDICARE, MEDICAID ==
[2025-07-07 15:34] LABS: ESTIMATED AVERAGE GLUCOSE 186.0 MG/DL (60-110)
[2025-07-07 15:40] LABS: CREATININE, URINE 33.4 MG/DL
[2025-07-07 15:41] LABS: ALT/SGPT 15 U/L (7.0-40); AST/SGOT 12 U/L (<34); CALCIUM LEVEL 8.9 MG/DL (8.3-10.6); CARBON DIOXIDE LEVEL 34 MMOL/L (20-31); CHLORIDE LEVEL 97 MMOL/L (98-107); CREATININE FOR GFR 0.76 MG/DL (0.70-1.30); GLOMERULAR FILTRATION RATE > 90.0 (>49); MALB URINE SIEMENS < 3.0 MG/L; POTASSIUM SERUM 5.0 MMOL/L (3.5-5.1); SODIUM LEVEL 137 MMOL/L (136-145)
== END ==
LOC: M LABDRWAD 13:38
PROVIDERS: ATTEND Nurse Practitioner Family
DX: E11.69 Type 2 diabetes mellitus with other specified complication (principal)